=== PATIENT | female | born 1950 | race Two or more races ===

== ENCOUNTER 2023-08-04 14:29 | Emergency (ER) | payer OTHER ==
[~2023-08-04] VITALS: Ht 162.6 cm; Wt 45.4 kg
[2023-08-04] MEDS ORDERED: VITAMIN D310 MCG/1 M (15:21)
[2023-08-04] MEDS ORDERED: VITAMIN C60 MG (15:21)
[2023-08-04] MEDS ORDERED: CALCIUM500 M2 (15:21)
[2023-08-04] MEDS ORDERED: B COMPLEX1 EAC1 (15:22)
== END 2023-08-04 16:40 | disposition home or self-care (01) ==
LOC: ER 14:30
DX: U07.1 COVID-19 (principal)